=== PATIENT | female | born 1975 | race Caucasian/White ===

== ENCOUNTER → 2023-03-20 17:49 | Outpatient (REF) | payer OTHER, SELFPAY | LOC: WDC 17:49 | PROVIDERS: ATTENDING PHYSICIAN Obstetrics & Gynecology | DX: Z12.31 Encounter for screening mammogram for malignant neoplasm of breast (principal) | CPT/HCPCS: 77063; 77067 ==

== ENCOUNTER → 2023-04-04 09:21 | Outpatient (REF) | payer OTHER, SELFPAY | LOC: WDC 09:21 | PROVIDERS: ATTENDING PHYSICIAN Obstetrics & Gynecology | DX: Z12.31 Encounter for screening mammogram for malignant neoplasm of breast (principal) | CPT/HCPCS: 76642 ==

== ENCOUNTER 2024-03-04 06:38 | Day surgery (SDC) | payer OTHER, SELFPAY ==
[2024-03-04 07:23] LABS: Glucose - Point of Care 116 mg/dl (70-99)
== END 2024-03-04 08:42 | disposition home or self-care (01) ==
LOC: GI 06:38
PROVIDERS: ATTENDING PHYSICIAN Internal Medicine Gastroenterology
DX: Z12.11 Encounter for screening for malignant neoplasm of colon (principal); K57.30 Diverticulosis of large intestine without perforation or abscess without bleeding; K64.0 First degree hemorrhoids
CPT/HCPCS: G0121; 82962

== ENCOUNTER → 2024-04-04 16:45 | Outpatient (REF) | payer OTHER, SELFPAY | LOC: WDC 16:45 | PROVIDERS: ATTENDING PHYSICIAN Obstetrics & Gynecology | DX: Z12.31 Encounter for screening mammogram for malignant neoplasm of breast (principal) | CPT/HCPCS: 77063; 77067 ==